=== PATIENT | female | born 1995 | race Caucasian/White ===

== ENCOUNTER 2017-01-29 10:41 | Emergency (ER) | payer OTHER ==
[~2017-01-29] VITALS: Ht 170.2 cm; Wt 67.2 kg
[2017-01-29 10:46] VITALS: TEMP 36.4; Ht 170.2 cm; Wt 67.2 kg
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
[2017-01-29] MEDS ORDERED: BCPILLS PO (11:21)
[2017-01-29] MEDS ORDERED: [UNRECOGNIZED DRUG - CODE] PO (11:21)
[2017-01-29] MEDS ORDERED: PRED20TA2 PO (11:21)
[2017-01-29] MEDS ORDERED: AMOX875T PO (11:21)
[2017-01-29] MEDS ORDERED: CETI10TA84 PO (11:21)
[2017-01-29 11:31] LABS: HEMATOCRIT 40.4 % (37-47); MEAN CORPUSCULAR HEMOGLOBIN 32.1 pg (25-34); MEAN CORPUSCULAR HGB CONC 34.2 g/dl (32-36); MEAN PLATELET VOLUME 10.3 fL (7.4-10.4); PLATELET COUNT 106 K/uL (130-400)
[2017-01-29 11:58] LABS: BUN/CREATININE RATIO 14.6 (10-20); CALCIUM 8.2 mg/dl (8.5-10.1); CREATININE 0.84 mg/dl (0.60-1.20); POTASSIUM 3.7 mmol/L (3.5-5.1)
[2017-01-29 12:06] LABS: URINE APPEARANCE CLEAR (CLEAR); URINE BILIRUBIN NEG (NEG); URINE COLOR YELLOW; URINE EPITHELIAL CELL AUTO 20-30 /lpf (0-5); URINE NITRITE NEG (NEG); URINE SPECIFIC GRAVITY 1.026 (1.000-1.030); UROBILINOGEN NEG (NEG)
[2017-01-29 12:09] LABS: MANUAL MICROSCOPIC REQUIRED? NO; REVIEW REQ? NO
[2017-01-29 12:28] LABS: BENZODIAZEPINE, URINE NEG (NEG); COCAINE,URINE NEG (NEG); PHENCYCLIDINE, URINE NEG (NEG)
[2017-01-29 13:09] VITALS: BP 150/90; PULSE 91; O2SAT 97
== END 2017-01-29 13:11 | disposition home or self-care (01) ==
LOC: C.EDB 10:42 → C.EDC 13:11
DX: Z03.6 Encounter for observation for suspected toxic effect from ingested substance ruled out (principal); R41.0 Disorientation, unspecified; Z79.3 Long term (current) use of hormonal contraceptives